=== PATIENT | female | born 1990 | race Two or more races ===

== ENCOUNTER 2020-03-18 20:40 | Emergency (ER) | payer SELFPAY ==
[~2020-03-18] VITALS: Ht 175.3 cm; Wt 95.5 kg
[2020-03-18] MEDS ORDERED: IV NORMAL SALINE 500ML BAG 500 ML IV ONE (23:00)
[2020-03-18] MEDS ORDERED: MAG HYDROX/ALUMINUM HYD/SIMETH 30 ML ORAL.SUSP PO ONE (23:00)
[2020-03-18] MEDS ORDERED: FAMOTIDINE 20 MG TABLET. PO ONE (23:00)
[2020-03-18] MEDS ORDERED: METOCLOPRAMIDE HCL 10 MG/2 ML VIAL. IVP ONE (23:00)
[2020-03-18 23:07] LABS: BILIRUBIN,URINE SMALL (NEG); CLARITY,URINE CLEAR; COLOR,URINE AMBER; NITRITE,URINE NEGATIVE (NEG); PROTEIN,URINE 30 mg/dL (NEG-TRACE); UROBILINOGEN,URINE 0.2 mg/dL (0.2 mg/dL)
--- NOTE | 2020-03-18 23:10 | PHYS DOC ---
Past Medical History Past Medical History: No Pertinent History Past Surgical History: Tubal ligation Smoking Status: Current Some Day Smoker Alcohol Use: Occasionally General Adult EDM: Chief Complaint: ABDOMINAL PAIN HPI: HPI: Patient is a 29 year old female who presents with Epigastric abd pain. The patient reports that about 2 days ago she began to have problems with epigastric abdominal pain at the same time that she developed subjective fevers, chills and some sweats with some generalized body aches. She denies any cough change in smell or taste or difficulty with urination. She also reports that she never did actually check her temperature. She reports that the epigastric pain is a burning sensation that seems to radiate into the mid back going straight through. She reports that food seems to make the pain somewhat better for a little while but then will be followed by diarrhea. She reports the diarrhea started at the same time as the abdominal pain. She reports that it was at first large-volume and is now frequent but smaller volume. She denies any other abdominal pain, low back pain rash or extremity pain. Patient denies any COVID- 19 exposure. She did get a test from the health department yesterday. Review of Systems: Review of Systems: Constitutional: See HPI. [] Eyes: Denies change in visual acuity. [] HENT: Denies nasal congestion or sore throat. [] Respiratory: Denies cough or shortness of breath. [] Cardiovascular: Denies chest pain or edema. [] GI: See HPI. [] : Denies dysuria. [] Musculoskeletal: Denies back pain or joint pain. [] Integument: Denies rash. [] Neurologic: Denies headache, focal weakness or sensory changes. [] Endocrine: Denies polyuria or polydipsia. [] Lymphatic: Denies swollen glands. [] Psychiatric: Denies depression or anxiety. [] Heart Score: Risk Factors: Risk Factors: DM, Current or recent (<one month) smoker, HTN, HLP, family history of CAD, obesity. Risk Scores: Score 0 - 3: 2.5% MACE over next 6 weeks - Discharge Home Score 4 - 6: 20.3% MACE over next 6 weeks - Admit for Clinical Observation Score 7 - 10: 72.7% MACE over next 6 weeks - Early Invasive Strategies Allergies: Allergies: Allergies Coded Allergies Type Severity Reaction Last Updated Verified No Known Drug Allergies 03/18/20 No Physical Exam: PE: Constitutional: Well developed, well nourished, no acute distress, non-toxic appearance. [] HENT: Normocephalic, atraumatic, bilateral external ears normal, oropharynx moist, no oral exudates, nose normal. [] Eyes: PERRLA, EOMI, conjunctiva normal, no discharge. [] Neck: Normal range of motion, no tenderness, supple, no stridor. [] Cardiovascular:Heart rate regular rhythm, no murmur [] Lungs & Thorax: Bilateral breath sounds clear to auscultation [] Abdomen: Positive bowel sounds, soft, tenderness in the epigastrium, no guarding or rebound, mild tenderness in the left lower quadrant, no hepatosplenomegaly or masses. Negative Paredes sign, negative Rovsing sign [] Skin: Warm, dry, no erythema, no rash. [] Back: No tenderness, no CVA tenderness. [] Extremities: No tenderness, no cyanosis, no clubbing, ROM intact, no edema. [] Neurologic: Alert and oriented X 3, normal motor function, normal sensory function, no focal deficits noted. [] Psychologic: Affect normal, judgement normal, mood normal. [] Current Patient Data: Labs: Laboratory Tests Test 03/18/20 22:25 POC Urine HCG, Qualitative Hcg negative (Negative) Vital Signs: Vital Signs Date Time Temp Pulse Resp B/P (MAP) Pulse Ox O2 Delivery O2 Flow Rate FiO2 03/18/20 22:07 98.6 86 18 136/78 (97) 100 Room Air 98.6 EKG: EKG: Heart rate 84 bpm, normal axis, normal intervals, sinus rhythm, normal ECG [] Radiology/Procedures: Radiology/Procedures: [] Course & Med Decision Making: Course & Med Decision Making Pertinent Labs and Imaging studies reviewed. (See chart for details) 0111-patient was seen and reevaluated. Patient states that her pain is now completely resolved. She does not have any back pain as well. She reports that she should be starting her menses soon but does not reports she is actively menstruating. I discussed with her the red blood cells in the urine and I asked her to return should she have any troubles with reoccurrence of the pain, fever, difficulty with urination. However I think that since she is improved further testing test is not warranted. I did offer her a CAT scan which she refused. I discussed with her reasons to return, treatment plan and need for follow-up. [] Ernst Disclaimer: Ernst Disclaimer: This electronic medical record was generated, in whole or in part, using a voice recognition dictation system. Departure Departure Impression: Primary Impression: Epigastric abdominal pain Additional Impressions: Hematuria Qualified Codes: R31.9 - Hematuria, unspecified Acute gastritis without hemorrhage Qualified Codes: K29.00 - Acute gastritis without bleeding Disposition: HOME, SELF-CARE Condition: IMPROVED Referrals: NO PCP (PCP) Patient Instructions: Abdominal Pain, Gastritis, Adult, Hematuria, Adult Additional Instructions: Please follow-up with primary care provider noted on the discharge instructions and have a repeat UA. Should the hematuria persist further work-up may need to be performed. Scripts Omeprazole (OMEPRAZOLE) 40 Mg Capsule.dr 40 MG PO DAILY for 30 Days, #30 CAP Take 1/2-hour before the first meal the day Prov: CONCEPCIÓN MUSTAFA MD 03/19/20 Justicifation of Admission Dx: Justifications for Admission: Justification of Admission Dx: N/A CONCEPCIÓN MUSTAFA MD Mar 18, 2020 23:10
[2020-03-18 23:12] LABS: BARBITURATES NEG (NEG); BENZODIAZEPINES NEG (NEG); CANNABINOIDS NEG (NEG); COCAINE NEG (NEG); METHADONE NEG (NEG); OPIATES NEG (NEG); PHENCYCLIDINE NEG (NEG)
[2020-03-18 23:13] LABS: AMPHETAMINE/METHAMPHETAMINE NEG (NEG)
[2020-03-18 23:16] LABS: BACTERIA,URINE MODERATE /HPF (0-FEW); RBC,URINE TNTC /HPF (0-2)
[2020-03-18 23:17] LABS: SQUAMOUS EPITHELIAL CELL,UR MOD /LPF
--- NOTE | 2020-03-18 23:33 | RAD ---
Exam: Chest one view INDICATION: Epigastric pain TECHNIQUE: Frontal view of the chest Comparisons: None FINDINGS: The cardiomediastinal silhouette and pulmonary vessels are within normal limits. The lung and pleural spaces are clear. IMPRESSION: No acute cardiopulmonary process. Electronically signed by: Claudia Helms MD (03/18/2020 11:30 PM) [id number]
[2020-03-18 23:43] LABS: BASO % 0 % (0-3); EOS # 0.1 x10^3/uL (0.0-0.7); EOS % 1 % (0-3); HEMATOCRIT 38.9 % (36.0-47.0); HEMOGLOBIN 13.3 g/dL (12.0-15.5); LYMPH # 2.1 x10^3/uL (1.0-4.8); LYMPH % 27 % (24-48); MEAN CORPUSCULAR HEMOGLOBIN 29 pg (25-35); MEAN CORPUSCULAR HGB CONC 34 g/dL (31-37); MEAN CORPUSCULAR VOLUME 85 fL (79-100); MONO # 0.6 x10^3/uL (0.0-1.1); MONO % 8 % (0-9); NEUT # 4.8 x10^3/uL (1.8-7.7); NEUT % 64 % (31-73); PLATELET COUNT 276 x10^3/uL (140-400); RED BLOOD COUNT 4.61 x10^6/uL (3.50-5.40); RED CELL DISTRIBUTION WIDTH 13.4 % (11.5-14.5); WHITE BLOOD COUNT 7.6 x10^3/uL (4.0-11.0)
[2020-03-18 23:45] LABS: CALCIUM 8.7 mg/dL (8.5-10.1); CREATININE 0.9 mg/dL (0.6-1.0); GFR 73.5; POTASSIUM 4.1 mmol/L (3.5-5.1)
[2020-03-18 23:51] LABS: ALBUMIN 3.5 g/dL (3.4-5.0); ALBUMIN/GLOBULIN RATIO 0.8 (1.0-1.7); TOTAL BILIRUBIN 0.5 mg/dL (0.2-1.0); TOTAL PROTEIN 7.8 g/dL (6.4-8.2)
[2020-03-19] MEDS ORDERED: OMEP40CA45 PO (01:15)
[2020-03-19 01:42] VITALS: BP 111/68
--- NOTE | 2020-03-22 05:23 | EKG ---
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
== END 2020-03-19 01:43 | disposition home or self-care (01) ==
LOC: ER 20:40
DX: K29.00 Acute gastritis without bleeding (principal); R31.9 Hematuria, unspecified; F17.200 Nicotine dependence, unspecified, uncomplicated; Z98.51 Tubal ligation status
CPT/HCPCS: 36415; 71045; 80053; 80307; 81001; 81025; 83690; 84484; 85025; 87086; 96361; 96374; 99285; G0480; J2765; J7040